=== PATIENT | female | born 1985 | race African-American/Black ===

== ENCOUNTER 2024-12-24 09:09 | Emergency (ER) | payer OTHER, SELFPAY ==
--- NOTE | 2024-12-24 09:58 | ED.URI ---
HPI - URI/Sore Throat General Chief Complaint: Dental/Oral Stated Complaint: r side jaw and ear pain Time Seen by Provider: 12/24/24 10:10 Source: patient, RN notes reviewed and old records reviewed Mode of arrival: ambulatory History of Present Illness ED Provider: Destiny Bolaños PA-C HPI Narrative: 39-year-old female with a past medical history of right lower wisdom tooth extraction on 12/17 and left lower wisdom tooth extraction on 12/21, presenting to the ED complaining of right-sided dental/facial pain radiating to ear. Admits during subsequent dental extraction on the had right side evaluated and was told everything looked okay. Has been taking Tylenol, Motrin, and Vicodin at home without relief. Denies drainage from area, chills, fever. Related Data Previous Rx's ?Medication ?Instructions ?Recorded amoxicillin 875 mg-potassium 1 tab PO BID 7 days #14 tabs 12/24/24 clavulanate 125 mg tablet Allergies Allergy/AdvReac Type Severity Reaction Status Date / Time sulfamethoxazole AdvReac Unknown Verified 12/24/24 10:01 [From Bactrim] trimethoprim [From Bactrim] AdvReac Unknown Verified 12/24/24 10:01 Review of Systems Review of Systems: Yes all other systems are reviewed and are negative Constitutional: Constitutional: Reports as per [facility] Past Medical History Attestation statement: The following information was validated with the patient. Source: old records reviewed Physical Exam Vital Signs: Vital Signs: Last Vital Signs Temp 98.3 F 12/24/24 10:00 Pulse 91 12/24/24 10:00 Resp 16 12/24/24 10:00 BP 132/83 12/24/24 10:00 Pulse Ox 100 12/24/24 10:00 O2 Del Method Room Air 12/24/24 10:00 BMI result Body Mass Index 26.9 Const: General: cooperative, healthy appearing and no acute distress Orientation/consciousness: patient oriented x3 Limitations: no limitations HEENT: Other: Slight right-sided facial swelling noted + bilateral lower 3rd molars extracted - right side with mild swelling. No erythema, or warmth. No fluctuance or induration. +Diffusely tender to palpation - left side nontender Head: Yes normal to inspection and Yes atraumatic Ears: hearing grossly normal bilaterally and TM's normal bilaterally General nose exam: Normal external nose present Face and sinus: Yes normal facial exam Mouth: no drooling Throat: Yes posterior oropharynx normal, Yes uvula midline, No uvula laterally displaced and No uvular edema Eyes: General: appearance normal, both eyes and all related structures EOM: EOMs intact bilaterally Neck: Neck: Yes normal visual inspection and Yes no meningeal signs Resp: Effort & Inspection: normal respiratory effort, no respiratory distress and no stridor Cardio: Rate: regular rate Skin: Rashes: no rashes Wounds: no wounds Neuro: General: patient oriented x3, tone normal and no meningeal signs Cranial nerves: Yes CN's II-XII intact bilaterally Gait exam (Neuro): Normal gait present Extrem: General: Yes normal to inspection Course Course Course Narrative: This is a Rapid Medical Exam performed in triage by Destiny Bolaños PA-C. Full HPI, ROS and PE to be performed by primary ED provider. Plan: Medical Decision Making Medical Decision Making MDM Narrative: 39-year-old female with a past medical history of right lower wisdom tooth extraction on 12/17 and left lower wisdom tooth extraction on 12/21, presenting to the ED complaining of right-sided dental/facial pain radiating to ear. On exam vital signs stable, NAD, nontoxic appearing, no trismus, physical exam as noted above. Concern for infection vs extraction complication vs postsurgical pain. No evidence of drainable collection at this time. No evidence of otitis. Plan: P.o. antibiotics, dentistry follow-up. States her dentist is currently located to in [place], has been taking an Uber to facility which is costing a lot of money. Will also refer to [facility] Please refer to course for remaining clinical decision making, interpretation of labs/imaging results, and discussions with consultants and/or family members. Results discussed with patient including worrisome signs and symptoms and strict return precautions, and when to return to the emergency department. They verbalized understanding and feel safe for discharge at this time. Differential Diagnosis Differential Diagnoses: The differential diagnosis associated with the presentation includes As above External Record Review External record reviewed: Inpatient record, Office record, Outpatient record, Prior outpatient labs, Prior outpatient radiology, Primary care record and Outside ED record Tests considered The following testing was considered but not selected: As above Prescription Management I considered prescription management with: Pain Medication and Antibiotic Chronic Conditions Patient?s care impacted by: Other Social Determinants Patient?s care significantly limited by Social Determinants of Health including: Other Social Determinant of Health Discharge Plan Discharge Clinical Impression: Toothache Patient Disposition: Home, Self-Care Instructions: Toothache (ED) Additional Instructions: Augmentin as an antibiotic please take as prescribed. This was sent to [facility] on [address] in [place] ([address]) You need to follow up with your dentist. You may also try this dentist office across the street: [facility] [address] [facility] [phone] Continue taking previously prescribed pain medication. Ice the area If face becomes swollen, there is drainage in your mouth, you fever please return to the ED Prescriptions: New amoxicillin-pot clavulanate 875-125 mg tablet 1 tab PO BID 7 Days Qty: 14 0RF Print Language: Amharic
[2024-12-24 10:00] VITALS: BP 132/83; PULSE 91; RESP 16; TEMP 36.8; O2SAT 100; BMI 26.9
[2024-12-24 11:39] VITALS: BP 132/83; PULSE 91; RESP 16; TEMP 36.8; O2SAT 100
== END 2024-12-24 11:40 | disposition home or self-care (01) ==
PROVIDERS: Emergency Provider Emergency Medicine Emergency Medical Services
DX: K08.89 Other specified disorders of teeth and supporting structures (principal); H92.01 Otalgia, right ear
CPT/HCPCS: 99282; 99283